=== PATIENT | female | born 2000 | race Caucasian/White ===

== ENCOUNTER 2024-05-11 11:53 | Emergency (ER) | payer OTHER, SELFPAY ==
[2024-05-11 12:05] VITALS: BP 131/66; PULSE 102; RESP 16; TEMP 36.8; O2SAT 99
--- NOTE | 2024-05-11 12:13 | ED.EXTPRO ---
HPI - Extremity Problem General Chief complaint: Extremity Problem,Nontraumatic Stated complaint: lt arm swelling Time Seen by Provider: 05/11/24 12:14 Source: patient and RN notes reviewed Mode of arrival: ambulatory Limitations: no limitations History of Present Illness HPI Narrative: 24-year-old female presents with concern for left upper arm swelling and tightness. She reports she noticed it yesterday. She denies injury or trauma, reports she has recently started working out. She denies redness, warmth, tenderness. She denies any open skin, rash. Reports she put ice on it last night without relief. She denies any decreased strength, sensation, range of motion in the distal extremity MD Complaint: extremity swelling Related Data Home Medications Medication Instructions Recorded Confirmed bupropion HCl 150 mg 24 hr tablet, 150 mg PO DAILY 05/11/24 05/11/24 extended release norethindrone 1.5 mg-ethinyl 1 tablet PO DAILY 05/11/24 05/11/24 estradiol 30 mcg(21)/iron 75 mg(7) tablet (Junel FE 1.5/30 (28)) vilazodone 40 mg tablet 20 mg PO DAILY 05/11/24 05/11/24 Allergies Allergy/AdvReac Type Severity Reaction Status Date / Time cefixime [From Suprax] AdvReac Mild Hives Verified 05/11/24 12:16 Review of Systems Review of Systems: CONSTITUTIONAL: Denies malaise, chills, sweats, or fever. CARDIOVASCULAR: Denies chest pain, palpitations, or edema. RESPIRATORY: Denies cough or dyspnea. SKIN: Denies rash or itching, bruising, redness. MUSCULOSKELETAL: Reports left upper arm swelling NEUROLOGIC: Denies numbness, weakness All systems reviewed & are unremarkable except as noted in HPI and below PMFSH Comments At time of signature, agree with nursing past medical, surgical, social and family history. There is no relevant family history pertinent to the presenting complaint Exam Narrative: GENERAL: Well-appearing, well-nourished, and in no acute distress. HEAD: Normocephalic, atraumatic. EYES: PERRLA, conjunctivae clear NECK: Supple. CHEST: Speaks in full sentences. No respiratory distress. HEART: Regular rate and rhythm. Normal and equal peripheral pulses. EXTREMITIES: Left upper extremity has normal strength and sensation, normal range of motion. No ecchymosis, warmth, erythema noted. Normal sensation with sensitivity to light touch and pain. No point tenderness or general tenderness. No open wounds, no skin tenting, no devitalized tissue or atrophy, no trophic changes, no obvious deformity, alignment normal, nearby joints and structures intact. Distal pulses palpable and equal bilaterally, skin warm, dry, pink. Capillary refill less than 3 seconds. Nonpitting mild Upper arm edema, nontender noted SKIN: Warm, dry, no rash. NEURO: Alert and oriented x3. PSYCH: Normal mood and affect Course Course Emergency Course: Patient is aware of diagnosis, understands and agrees to treatment plan. Anticipatory guidance given. Patient agrees to follow-up as directed and is aware of reasons to seek care at the emergency department. Portions of this record may have been created with voice recognition software Level of Care: Express Care Visit Vital Signs Vital signs: Vital Signs Temperature 98.2 F 05/11/24 12:05 Pulse Rate 102 H 05/11/24 12:05 Respiratory Rate 16 05/11/24 12:05 Blood Pressure 131/66 05/11/24 12:05 Pulse Oximetry 99 05/11/24 12:05 Oxygen Delivery Room Air 05/11/24 12:05 Temperature 98.2 F 05/11/24 12:05 Pulse Rate 102 H 05/11/24 12:05 Respiratory Rate 16 05/11/24 12:05 Blood Pressure 131/66 05/11/24 12:05 Pulse Oximetry 99 05/11/24 12:05 Oxygen Delivery Room Air 05/11/24 12:05 Reviewed. Critical Care Time Critical Care Time Critical Care Time: No Discharge Plan Discharge Clinical Impression: Left arm swelling Patient Disposition: Home, Self-Care Condition: Stable Instructions: General Patient Instructions Additional Instruct
== END 2024-05-11 12:26 | disposition home or self-care (01) ==
PROVIDERS: Emergency Provider Nurse Practitioner
DX: R22.32 Localized swelling, mass and lump, left upper limb (principal); F41.9 Anxiety disorder, unspecified; F32.A Depression, unspecified
CPT/HCPCS: 99202; G0463